=== PATIENT | male | born 1945 ===

== ENCOUNTER 2018-01-03 23:52 | Emergency (ER) | payer OTHER, SELFPAY ==
[2018-01-03 23:56] VITALS: BP 164/105; PULSE 96; RESP 20; TEMP 37.1; O2SAT 98
--- NOTE | 2018-01-04 00:09 | ED.GENADUL ---
Disposition Clinical Impression: Esophageal foreign body Disposition: HOME Instructions: Esophageal Foreign Body (ED) Additional Instructions: Please follow-up with your GI specialist. Return to the emergency department immediately for any worsening or new concerning symptoms. Medical Decision Making - Medical Decision Making 12:14 --72-year-old male with history of esophageal stricture and esophageal foreign body in the past requiring endoscopy, here with sensation of foreign body lodged in his esophagus that occurred while eating chicken breast and has been constant for the past 2 hours. No respiratory distress. Airway intact. Plan to treat with effervescent granules and if no resolution will consult surgery. 12:57 -- Patient reassessed and notes complete resolution of symptoms. Requesting discharge. Patient was advised to follow-up with his GI specialist. History of Present Illness - General Chief complaint: ThroatFB Stated complaint: N/V/D Time Seen by Provider: 01/04/18 00:07 Source: patient, RN notes reviewed Mode of arrival: ambulatory Limitations: no limitations - History of Present Illness Initial comments: 72yo m with history of esophageal stricture requiring dilation, esophageal foreign body impaction in the past requiring endoscopy, presents with chief complaint of foreign body lodged in his esophagus. Patient notes he was eating chicken breast with no bone about 2 hours ago and got a piece stuck in his esophagus. Symptoms are severe. Feels uncomfortable. Associated retching. No abdominal pain. No modifiers. - Related Data Cyanocobalamin (Vitamin B-12) [Vitamin B12] 1 tab PO DAILY 01/03/18 Dabigatran [Pradaxa] 150 mg PO BID 01/03/18 Flecainide [Tambocor] 50 mg PO BID 01/03/18 Folic Acid [Folate] 1 mg PO DAILY 01/03/18 Gabapentin 300 mg PO PRN PRN 01/03/18 Glucosamine Sulfate Dipot Chlr [Glucosamine] 1,000 mg PO DAILY 01/03/18 Sertraline [Zoloft] 50 mg PO BID 01/03/18 Thiamine Mononitrate [Vitamin B-1] 100 mg PO DAILY 01/03/18 Vitamin D 1,000 unit PO DAILY 01/03/18 Allergies Allergy/AdvReac Type Severity Reaction Status Date / Time No Known Allergies Allergy Unverified 01/03/18 23:58 Review of Systems Respiratory: denies: cough, shortness of breath Gastrointestinal: as per HPI Comment: All other systems reviewed and negative Past Medical History - Past Medical History Esophageal foreign body, esophageal stricture - Social History Alcohol use: heavy General Exam - General Limitations: no limitations General appearance: alert, other (Appears uncomfortable) - ENT ENT exam: Present: mucous membranes moist - Neck Neck exam: Present: normal inspection. Absent: lymphadenopathy - Respiratory Respiratory exam: Present: normal lung sounds bilaterally. Absent: respiratory distress, wheezes, rales, rhonchi, stridor - Cardiovascular Cardiovascular Exam: Present: regular rate, normal rhythm, normal heart sounds - GI/Abdominal GI/Abdominal exam: Present: soft, normal bowel sounds. Absent: distended, tenderness, guarding, rebound, rigid - Neurological Exam Neurological exam: Present: alert. Absent: altered - Psychiatric Psychiatric exam: Present: normal affect - Skin Skin exam: Present: warm, dry, intact Course Vital Signs - 24 hr 01/03/18 23:56 Temperature 37.1 C Pulse 96 H Respiratory 20 Rate Blood Pressure 164/105 Pulse Oximetry 98
[2018-01-04 01:02] VITALS: BP 164/105; PULSE 96; RESP 20; TEMP 37.1; O2SAT 98
== END 2018-01-04 01:02 | disposition home or self-care (01) ==
PROVIDERS: Emergency Provider Student in an Organized Health Care Education/Training Program
DX: T18.128A Food in esophagus causing other injury, initial encounter (principal); K22.2 Esophageal obstruction
CPT/HCPCS: 99283